=== PATIENT | male | born 1955 ===

== ENCOUNTER 2018-11-14 20:23 | Emergency (ER) | payer SELFPAY ==
[~2018-11-14] VITALS: Ht 180.3 cm; Wt 79.2 kg
[2018-11-14 20:27] VITALS: BP 108/67; PULSE 71; RESP 16; Ht 180.3 cm; Wt 79.2 kg
[2018-11-14] MEDS ORDERED: ACETAMINOPHEN 500 MG TAB PO STA (21:11)
[2018-11-14] MEDS ORDERED: ACET500C5 PO (21:13)
--- NOTE | 2018-11-14 21:20 | ERD ---
ER Documentation Chief Complaint Chief Complaint Pt ran out of percocet 10/325mg pt states he just needs 1 for tonight HPI Patient is a 63-year-old male, past medical history of chronic hip pain, presents the ER requesting Percocet. Patient states he was in [place] 3 days ago when he fell while walking off a curb. Patient states he went to [facility] in [facility] and had 4 x-rays done which were all negative for fractures. Patient states he ran out of his pain medication as an appointment at [place] [facility] next week. Patient is able to ambulate without any difficulty. Patient denies any fevers or chills. ROS All systems reviewed and are negative except as per history of present illness. Medications Home Meds Active Scripts Acetaminophen* (Tylophen*) 500 Mg Capsule, 1 CAP PO Q6H PRN for PAIN AND OR ELEVATED TEMP, #20 CAP Prov:SHIMA WILLIAMSON PA-C 11/14/18 Allergies Allergies: Coded Allergies: Penicillins (Verified Allergy, Unknown, hives, 11/14/18) PMhx/Soc Medical and Surgical Hx: pt denies Medical Hx, pt denies Surgical Hx Hx Alcohol Use: No Hx Substance Use: No Hx Tobacco Use: No Smoking Status: Never smoker FmHx Family History: No diabetes Physical Exam Vitals Vital Signs Date Temp Pulse Resp B/P (MAP) Pulse Ox O2 O2 Flow FiO2 Time Delivery Rate 11/14/18 97.9 71 16 108/67 100 20:27 (81) Physical Exam GENERAL: Well-developed, well-nourished male. Appears in no acute distress. HEAD: Normocephalic, atraumatic. EYES: Pupils are equally reactive bilaterally. EOMs grossly intact. No conjunctival erythema. LUNG: No respiratory distress EXTREMITIES: Equal pulses bilaterally. No peripheral clubbing, cyanosis or edema. No unilateral leg swelling. NEUROLOGIC: Alert and oriented. Moving all four extremities without any difficulty. Normal speech. Steady gait. SKIN: Normal color. Warm and dry. No rashes or lesions. Results 24 hrs Current Medications Medications Dose Sig/Jc Start Time Status Last (Trade) Ordered Route PRN Stop Time Admin Dose Reason Admin 1,000 mg ONCE STAT 11/14/18 DC Acetaminophen PO 21:11 (Tylenol 11/14/18 21:12 Tab) Procedures/MDM MEDICAL DECISION MAKING: Patient is a 63-year-old male with past medical history of chronic hip pain, presents ER requesting pain medication.. Vital signs were reviewed. Patient is afebrile. Patient was not hypoxic. Patient was hemodynamically stable. Patient is well-known to myself and other members of the emergency department. Patient has previous history of checking into the emergency department with different names requesting pain medication. Patient does have a pain management plan in place under his other names. Patient was offered repeat x-rays today as he states he fell however he declines x-rays and states he only wants his Percocet. Patient was advised he will be given Tylenol or ibuprofen. Patient declined. No refills of narcotic medications will be given to the patient at this time. Patient was advised to follow-up with his specialist as he states he has an appointment next week. DISCHARGE: At this time, patient is stable for discharge and outpatient management. I have instructed the patient to follow-up with his/her primary care physician in 1-2 days. I have discussed with the patient the possibility of needing to see a specialist for further workup and imaging studies if symptoms persist. I have instructed the patient to promptly return to the ER for any new or worsening symptoms including increased pain, fever, nausea, vomiting, weakness or LOC. The patient and/or family expressed understanding of and agreement with this plan. All questions were answered. Home care instructions were provided. Disclaimer: Inadvertent spelling and grammatical errors are likely due to EHR/dictation software use and do not reflect on the overall quality of patient care. Also, please note that the electronic time recorded on this note does not necessarily reflect the actual time of the patient encounter. Departure Diagnosis: Primary Impression: Hip pain Laterality: right Qualified Codes: M25.551 - Pain in right hip Condition: Fair Patient Instructions: Hip Precautions Referrals: COMMUNITY CLINICS YOU HAVE RECEIVED A MEDICAL SCREENING EXAM AND THE RESULTS INDICATE THAT YOU DO NOT HAVE A CONDITION THAT REQUIRES URGENT TREATMENT IN THE EMERGENCY DEPARTMENT. FURTHER EVALUATION AND TREATMENT OF YOUR CONDITION CAN WAIT UNTIL YOU ARE SEEN IN YOUR DOCTORS OFFICE WITHIN THE NEXT 1-2 DAYS. IT IS YOUR RESPONSIBILITY TO MAKE AN APPOINTMENT FOR FOLOW-UP CARE. IF YOU HAVE A PRIMARY DOCTOR --you should call your primary doctor and schedule an appointment IF YOU DO NOT HAVE A PRIMARY DOCTOR YOU CAN CALL OUR PHYSICIAN REFERRAL HOTLINE AT IF YOU CAN NOT AFFORD TO SEE A PHYSICIAN YOU CAN CHOSE FROM THE FOLLOWING [facility] [address] [place] [facility] [address] [facility] [address] [facility] [address] [facility] [address] [facility] [facility] [address] [facility] [facility] YOU HAVE RECEIVED A MEDICAL SCREENING EXAM AND THE RESULTS INDICATE THAT YOU DO NOT HAVE A CONDITION THAT REQUIRES URGENT TREATMENT IN THE EMERGENCY DEPARTMENT. FURTHER EVALUATION AND TREATMENT OF YOUR CONDITION CAN WAIT UNTIL YOU ARE SEEN IN YOUR DOCTORS OFFICE WITHIN THE NEXT 1-2 DAYS. IT IS YOUR RESPONSIBILITY TO MAKE AN APPOINTMENT FOR FOLOW-UP CARE. IF YOU HAVE A PRIMARY DOCTOR --you should call your primary doctor and schedule and appointment IF YOU DO NOT HAVE A PRIMARY DOCTOR YOU CAN CALL OUR PHYSICIAN REFERRAL HOTLINE AT . IF YOU CAN NOT AFFORD TO SEE A PHYSICIAN YOU CAN CHOSE FROM THE FOLLOWING [facility] INSTITUTIONS: [facility] [address] [place] [address] [facility] [address] [place] [address] [facility] [address] [place] [address] Additional Instructions: Call your primary care doctor TOMORROW for an appointment during the next 1-2 days.See the doctor sooner or return here if your condition worsens before your appointment time. SHIMA WILLIAMSON PA-C Nov 14, 2018 21:20
== END 2018-11-15 00:55 | disposition home or self-care (01) ==
LOC: FTE 20:23
DX: M25.551 Pain in right hip (principal)
CPT/HCPCS: 99282